=== PATIENT | female | born 1980 | race Two or more races ===

== ENCOUNTER 2016-09-04 16:43 | Emergency (ER) | payer OTHER ==
[~2016-09-04] VITALS: Ht 165.1 cm; Wt 61.6 kg
[2016-09-04 17:27] LABS: ASPARTATE AMINO TRANSFERASE 14 U/L (15-37); BLOOD UREA NITROGEN 10 mg/dL (7-18)
[2016-09-04] MEDS ORDERED: SODIUM CHLORIDE 0.9% 1,000ML IVBOLUS ONE (18:00)
[2016-09-04] MEDS ORDERED: SODIUM CHLORIDE FLUSH 10ML SYR IVF ONE (18:00)
[2016-09-04 19:58] VITALS: BP 107/54
== END 2016-09-04 20:01 | disposition home or self-care (01) ==
LOC: ED 19:55
DX: O36.4XX0 Maternal care for intrauterine death, not applicable or unspecified (principal); Z3A.20 20 weeks gestation of pregnancy
CPT/HCPCS: 36415; 76801; 80053; 81001; 84702; 85025; 86901; 96360; 96361; 99285; J7030

== ENCOUNTER 2017-04-21 08:06 | Inpatient (IN) | payer OTHER ==
[~2017-04-21] VITALS: Ht 162.6 cm; Wt 72.7 kg
[2017-04-21] MEDS ORDERED: OXYTOCIN 30U/ 0.9% NaCL 500ML 500 ML IV SCH (10:08)
[2017-04-21] MEDS ORDERED: LACTATED RINGERS 1,000 ML IV SCH ×2 (10:08→10:30)
[2017-04-21] MEDS ORDERED: NEWBORN KIT ONE (10:12)
[2017-04-21] MEDS ORDERED: PREN1TAB60 PO (10:12)
[2017-04-21] MEDS ORDERED: SODIUM CITRATE/CITRIC ACID 30 ML UDC PO ONE (10:30)
[2017-04-21] MEDS ORDERED: METOCLOPRAMIDE 5 MG/ML, 2ML IV ONE (10:30)
[2017-04-21] MEDS ORDERED: LACTATED RINGERS 1,000 ML IVBOLUS ONE (10:30)
[2017-04-21] MEDS ORDERED: METOCLOPRAMIDE 5 MG/ML, 2ML ONE (10:38)
[2017-04-21] MEDS ORDERED: SODIUM CITRATE/CITRIC ACID 30 ML UDC ONE (10:38)
[2017-04-21 10:39] VITALS: BP 144/81
[2017-04-21 10:42] LABS: BASOPHILS # (AUTO) 0.02 x10^3/uL (0-0.1); BASOPHILS % (AUTO) 0 % (0-1); EOSINOPHILS # (AUTO) 0.03 x10^3/uL (0-0.4); EOSINOPHILS % (AUTO) 0 % (1-7); LYMPHOCYTES % (AUTO) 24 % (22-44); MD NO; MEAN CORPUSCULAR HEMOGLOBIN 29.8 pg (27.0-34.8); MEAN CORPUSCULAR HGB CONC 33.7 g/dL (32.4-35.8); MEAN CORPUSCULAR VOLUME 88.6 fL (80-100); MEAN PLATELET VOLUME 9.2 fL (7.4-10.4); MONOCYTES # (AUTO) 0.33 x10^3/uL (0.2-0.8); MONOCYTES % (AUTO) 5 % (2-9); NEUTROPHILS # (AUTO) 4.84 x10^3/uL (1.8-6.8); NEUTROPHILS % (AUTO) 71 % (42-75); PLATELET COUNT 256 x10^3/uL (130-400); RED CELL DISTRIBUTION WIDTH 13.6 % (9.6-15.2)
[2017-04-21 10:54] LABS: ALANINE AMINOTRANSFERASE 15 U/L (12-78); ALBUMIN 2.5 g/dL (3.4-5.0); ANION GAP 10 mmol/L (5-15); CALCIUM 8.2 mg/dL (8.5-10.1); CHLORIDE 106 mmol/L (98-107); CREATININE 0.55 mg/dL (0.55-1.02)
[2017-04-21 10:56] LABS: ALKALINE PHOSPHATASE 172 U/L (45-117); BILIRUBIN,TOTAL 0.2 mg/dL (0.2-1.0); TOTAL PROTEIN 6.7 g/dL (6.4-8.2)
[2017-04-21] MEDS ORDERED: OXYTOCIN 30U/ 0.9% NaCL 500ML 500 ML ONE (11:53)
[2017-04-21 12:05] LABS: MICROSCOPIC NOT IND
[2017-04-21 12:08] LABS: PROTEIN/CREATININE RATIO,URINE < 376 (0-200); TOTAL PROTEIN,URINE RANDOM < 5 mg/dL (0-12)
[2017-04-21] MEDS ORDERED: CEFAZOLIN 1,000 MG ONE (12:14)
[2017-04-21] MEDS ORDERED: EPHEDRINE 50 MG/ML, 1ML ONE (12:14)
[2017-04-21] MEDS ORDERED: LIDOCAINE 1%, 10ML ONE (12:14)
[2017-04-21] MEDS ORDERED: OXYTOCIN 10 UNITS/ML, 1ML ONE (12:14)
[2017-04-21] MEDS: LACTATED RINGERS 1,000 ML IV SCH ×4 (13:07→23:07)
[2017-04-21] MEDS ORDERED: IBUPROFEN 600 MG TABLET PO PRN (13:30)
[2017-04-21] MEDS ORDERED: ACETAMINOPHEN 325 MG TABLET PO PRN (13:30)
[2017-04-21] MEDS ORDERED: BISACODYL 10 MG SUPP PR PRN (13:30)
[2017-04-21] MEDS ORDERED: HYDROcodone/APAP 5/325 TABLET PO PRN (13:30)
[2017-04-21] MEDS ORDERED: ONDANSETRON 2MG/ML, 2ML IV PRN ×2 (13:30→14:30)
[2017-04-21] MEDS ORDERED: METOCLOPRAMIDE 5 MG/ML, 2ML IV PRN (13:30)
[2017-04-21] MEDS ORDERED: MISOPROSTOL 200 MCG TABLET PR PRN (13:30)
[2017-04-21] MEDS: OXYTOCIN 30U/ 0.9% NaCL 500ML 500 ML IV SCH ×2 (13:46→23:07)
[2017-04-21] MEDS ORDERED: OXYcodone 5 MG/5 ML ORAL.SOL UDC ONE (14:16)
[2017-04-21] MEDS ORDERED: MORPHINE SULFATE 4 MG/ML, 1ML IV PRN (14:30)
[2017-04-21] MEDS ORDERED: FENTANYL PF 100 MCG/2ML IVPush PRN (14:30)
[2017-04-21] MEDS ORDERED: OXYcodone 5 MG/5 ML ORAL.SOL UDC PO PRN (14:30)
[2017-04-21] MEDS ORDERED: MEPERIDINE/PF 25MG/0.5ML IV PRN (14:30)
[2017-04-21] MEDS ORDERED: MEPERIDINE/PF 100 MG/ML ONE (14:45)
[2017-04-21 15:15] VITALS: BP 135/77
[2017-04-21] MEDS: OXYcodone/APAP 5/325MG TABLET PO PRN ×2 (18:40→23:29)
[2017-04-21] MEDS: KETOROLAC 30 MG/1 ML IV SCH (18:40)
[2017-04-21 20:00] VITALS: BP 122/75
[2017-04-21 21:34] LABS: BASOPHILS # (AUTO) 0.02 x10^3/uL (0-0.1); BASOPHILS % (AUTO) 0 % (0-1); EOSINOPHILS # (AUTO) 0.02 x10^3/uL (0-0.4); EOSINOPHILS % (AUTO) 0 % (1-7); LYMPHOCYTES % (AUTO) 22 % (22-44); MD NO; MEAN CORPUSCULAR HEMOGLOBIN 29.7 pg (27.0-34.8); MEAN CORPUSCULAR HGB CONC 33.7 g/dL (32.4-35.8); MEAN CORPUSCULAR VOLUME 88.3 fL (80-100); MONOCYTES # (AUTO) 0.43 x10^3/uL (0.2-0.8); MONOCYTES % (AUTO) 5 % (2-9); NEUTROPHILS # (AUTO) 5.96 x10^3/uL (1.8-6.8); NEUTROPHILS % (AUTO) 72 % (42-75); PLATELET COUNT 220 x10^3/uL (130-400); RED BLOOD COUNT 3.41 x10^6/uL (3.82-5.3); RED CELL DISTRIBUTION WIDTH 14.4 % (9.6-15.2)
[2017-04-21 23:40] VITALS: BP 126/72
[2017-04-22] MEDS: KETOROLAC 30 MG/1 ML IV SCH ×4 (00:55→18:32)
[2017-04-22] MEDS: OXYcodone/APAP 5/325MG TABLET PO PRN ×5 (04:54→21:35)
[2017-04-22] MEDS: LACTATED RINGERS 1,000 ML IV SCH ×5 (05:07→21:07)
[2017-04-22 07:33] VITALS: BP 123/68
[2017-04-22] MEDS: OXYTOCIN 30U/ 0.9% NaCL 500ML 500 ML IV SCH ×2 (08:34→18:41)
[2017-04-22] MEDS: PRENATAL VIT/IRON/FA 1 EACH TABLET PO SCH (08:44)
[2017-04-22] MEDS: DOCUSATE 100 MG CAPSULE PO PRN ×2 (08:44→21:35)
[2017-04-22 12:07] VITALS: BP 122/80
[2017-04-22 21:00] VITALS: BP 135/82
[2017-04-23] MEDS: KETOROLAC 30 MG/1 ML IV SCH (00:15)
[2017-04-23] MEDS: OXYcodone/APAP 5/325MG TABLET PO PRN ×3 (04:19→12:45)
[2017-04-23] MEDS: PRENATAL VIT/IRON/FA 1 EACH TABLET PO SCH (07:16)
[2017-04-23] MEDS: DOCUSATE 100 MG CAPSULE PO PRN (07:16)
[2017-04-23 08:24] VITALS: BP 130/80
[2017-04-23] MEDS ORDERED: IBUP-1223 PO (10:49)
[2017-04-23] MEDS ORDERED: OXYC-302 PO (10:49)
== END 2017-04-23 13:20 | disposition home or self-care (01) | DRG 766 ==
LOC: LDIP 10:02 → 2NW 15:04
PROVIDERS: ADMIT Obstetrics & Gynecology Female Pelvic Medicine and Reconstructive Surgery; ATTEND Obstetrics & Gynecology Female Pelvic Medicine and Reconstructive Surgery
PROC: 10D00Z1 Extraction of Products of Conception, Low, Open Approach (ICD-10-PCS; principal; 2017-04-21)
DX: O34.211 Maternal care for low transverse scar from previous cesarean delivery (principal); Z37.0 Single live birth; Z3A.39 39 weeks gestation of pregnancy
CPT/HCPCS: 36415; 80053; 81003; 82570; 84156; 84550; 85025; 86850; 86900; J0690; J1885; J2175; J3490; J2590; J2765; J7120